=== PATIENT | female | born 1930 | race Native Hawaiian/Other Pacific Islander ===

== ENCOUNTER 2016-05-11 08:29 | Inpatient (IN) | payer OTHER | END 2016-06-11 08:00 | disposition still patient (30) | LOC: PAVA 08:29 | PROVIDERS: ADMIT Internal Medicine | DX: Z51.89 Encounter for other specified aftercare (principal) ==

== ENCOUNTER 2016-06-11 09:00 | Inpatient (IN) | payer OTHER | END 2016-07-12 08:34 | disposition still patient (30) | LOC: PAVA 09:00 | PROVIDERS: ADMIT Internal Medicine | DX: Z51.89 Encounter for other specified aftercare (principal) ==

== ENCOUNTER 2016-06-15 04:44 | Outpatient (CLI) | payer OTHER ==
[2016-06-15 06:33] LABS: PLATELET COUNT 271 K/uL (152-353)
[2016-06-15 06:43] LABS: POTASSIUM 4.3 mmol/L (3.6-5.2)
== END 2016-06-15 05:44 | disposition home or self-care (01) ==
LOC: LAB 04:44
PROVIDERS: Internal Medicine
DX: Z79.899 Other long term (current) drug therapy (principal); I10 Essential (primary) hypertension
CPT/HCPCS: 80053; 80061; 85027

== ENCOUNTER 2016-07-12 08:59 | Inpatient (IN) | payer OTHER | END 2016-08-09 08:16 | disposition still patient (30) | LOC: PAVA 08:59 | PROVIDERS: ADMIT Internal Medicine | DX: Z51.89 Encounter for other specified aftercare (principal) ==

== ENCOUNTER 2016-08-09 08:24 | Inpatient (IN) | payer OTHER | END 2016-09-09 08:01 | disposition still patient (30) | LOC: PAVA 08:24 | PROVIDERS: ADMIT Internal Medicine | DX: Z51.89 Encounter for other specified aftercare (principal) ==

== ENCOUNTER 2016-09-09 09:43 | Inpatient (IN) | payer OTHER | END 2016-10-09 08:29 | disposition still patient (30) | LOC: PAVA 09:43 | PROVIDERS: ADMIT Internal Medicine | DX: Z51.89 Encounter for other specified aftercare (principal) ==

== ENCOUNTER 2016-10-07 00:35 | Outpatient (CLI) | payer OTHER | END 2016-10-07 19:06 | disposition home or self-care (01) | LOC: LAB 00:35 | DX: Z16.24 Resistance to multiple antibiotics (principal) | CPT/HCPCS: 87081 ==

== ENCOUNTER 2016-10-09 08:40 | Inpatient (IN) | payer OTHER | END 2016-11-09 08:09 | disposition still patient (30) | LOC: PAVA 08:40 | PROVIDERS: ADMIT Internal Medicine | DX: Z51.89 Encounter for other specified aftercare (principal) ==

== ENCOUNTER 2016-11-09 08:18 | Inpatient (IN) | payer OTHER | END 2016-12-09 14:56 | disposition still patient (30) | LOC: PAVA 08:18 | PROVIDERS: ADMIT Internal Medicine | DX: Z51.89 Encounter for other specified aftercare (principal) ==

== ENCOUNTER 2016-12-09 15:04 | Inpatient (IN) | payer OTHER | END 2017-01-09 08:29 | disposition still patient (30) | LOC: PAVA 15:04 | PROVIDERS: ADMIT Internal Medicine | DX: Z51.89 Encounter for other specified aftercare (principal) ==

== ENCOUNTER 2016-12-14 05:20 | Outpatient (CLI) | payer OTHER ==
[2016-12-14 06:41] LABS: POTASSIUM 4.4 mmol/L (3.6-5.2)
[2016-12-14 09:48] LABS: PLATELET COUNT 291 K/uL (152-353)
== END 2016-12-14 17:51 | disposition home or self-care (01) ==
LOC: LAB 05:20
PROVIDERS: Internal Medicine
DX: Z79.899 Other long term (current) drug therapy (principal); Z51.81 Encounter for therapeutic drug level monitoring; I10 Essential (primary) hypertension
CPT/HCPCS: 80053; 85027

== ENCOUNTER 2017-01-09 08:47 | Inpatient (IN) | payer OTHER | END 2017-02-09 08:09 | disposition still patient (30) | LOC: PAVA 08:47 | PROVIDERS: ADMIT Internal Medicine | DX: Z51.89 Encounter for other specified aftercare (principal) ==

== ENCOUNTER 2017-02-09 08:19 | Inpatient (IN) | payer OTHER | END 2017-03-11 09:07 | disposition still patient (30) | LOC: PAVA 08:19 | PROVIDERS: ADMIT Internal Medicine | DX: Z51.89 Encounter for other specified aftercare (principal) ==

== ENCOUNTER 2017-03-11 09:16 | Inpatient (IN) | payer OTHER | END 2017-04-11 09:49 | disposition still patient (30) | LOC: PAVA 09:16 | PROVIDERS: ADMIT Internal Medicine ==

== ENCOUNTER 2017-04-11 10:31 | Inpatient (IN) | payer OTHER | END 2017-05-11 08:11 | disposition still patient (30) | LOC: PAVA 10:31 | PROVIDERS: ADMIT Internal Medicine ==

== ENCOUNTER 2017-05-11 08:44 | Inpatient (IN) | payer OTHER | END 2017-06-11 08:26 | disposition still patient (30) | LOC: PAVA 08:44 | PROVIDERS: ADMIT Internal Medicine ==

== ENCOUNTER 2017-06-11 08:45 | Inpatient (IN) | payer OTHER | END 2017-07-12 08:29 | disposition still patient (30) | LOC: PAVA 08:45 | PROVIDERS: ADMIT Internal Medicine ==

== ENCOUNTER 2017-06-13 06:24 | Outpatient (CLI) | payer OTHER ==
[2017-06-13 08:22] LABS: PLATELET COUNT 260 K/uL (152-353)
[2017-06-13 08:33] LABS: POTASSIUM 4.5 mmol/L (3.6-5.2)
== END 2017-06-13 21:33 | disposition home or self-care (01) ==
LOC: LAB 06:24
PROVIDERS: Internal Medicine
DX: E78.4 Other hyperlipidemia (principal)
CPT/HCPCS: 80053; 80061; 85027

== ENCOUNTER 2017-06-27 07:43 | Outpatient (CLI) | payer OTHER | END 2017-06-27 19:54 | disposition home or self-care (01) | LOC: LAB 07:43 | DX: R50.9 Fever, unspecified (principal) | CPT/HCPCS: 87804 ==

== ENCOUNTER 2017-06-28 16:21 | Outpatient (CLI) | payer OTHER | END 2017-06-28 20:17 | disposition home or self-care (01) | LOC: RESP 16:21 | DX: J09.X2 Influenza due to identified novel influenza A virus with other respiratory manifestations (principal); I50.9 Heart failure, unspecified | CPT/HCPCS: 93306 ==

== ENCOUNTER 2017-07-12 09:14 | Inpatient (IN) | payer OTHER | END 2017-08-09 08:06 | disposition still patient (30) | LOC: PAVA 09:14 | PROVIDERS: ADMIT Internal Medicine ==

== ENCOUNTER 2017-08-09 08:41 | Inpatient (IN) | payer OTHER | END 2017-09-09 08:00 | disposition still patient (30) | LOC: PAVA 08:41 | PROVIDERS: ADMIT Internal Medicine ==

== ENCOUNTER 2017-09-09 09:00 | Inpatient (IN) | payer OTHER | END 2017-10-09 08:10 | disposition still patient (30) | LOC: PAVA 09:00 | PROVIDERS: ADMIT Internal Medicine ==

== ENCOUNTER 2017-10-09 08:36 | Inpatient (IN) | payer OTHER | END 2017-11-09 08:17 | disposition still patient (30) | LOC: PAVA 08:36 | PROVIDERS: ADMIT Internal Medicine ==

== ENCOUNTER 2017-11-09 08:28 | Inpatient (IN) | payer OTHER | END 2017-12-09 14:14 | disposition still patient (30) | LOC: PAVA 08:28 | PROVIDERS: ADMIT Internal Medicine ==

== ENCOUNTER 2017-12-09 14:25 | Inpatient (IN) | payer OTHER | END 2018-01-09 08:00 | disposition still patient (30) | LOC: PAVA 14:25 | PROVIDERS: ADMIT Internal Medicine ==

== ENCOUNTER 2017-12-12 05:07 | Outpatient (CLI) | payer OTHER, MEDICARE ==
[2017-12-12 06:27] LABS: PLATELET COUNT 273 K/uL (152-353)
== END 2017-12-12 22:06 | disposition home or self-care (01) ==
LOC: LAB 05:07
PROVIDERS: Internal Medicine
DX: I10 Essential (primary) hypertension (principal)
CPT/HCPCS: 80053; 85027

== ENCOUNTER 2018-01-09 09:00 | Inpatient (IN) | payer OTHER | END 2018-02-09 09:55 | disposition still patient (30) | LOC: PAVA 09:00 | PROVIDERS: ADMIT Internal Medicine ==

== ENCOUNTER 2018-02-09 10:03 | Inpatient (IN) | payer OTHER | END 2018-03-11 08:38 | disposition still patient (30) | LOC: PAVA 10:03 | PROVIDERS: ADMIT Internal Medicine ==

== ENCOUNTER 2018-02-22 11:45 | Outpatient (CLI) | payer OTHER | END 2018-02-22 19:40 | disposition home or self-care (01) | LOC: LAB 11:45 | DX: R41.82 Altered mental status, unspecified (principal) | CPT/HCPCS: 81000 ==

== ENCOUNTER 2018-03-11 08:48 | Inpatient (IN) | payer OTHER ==
[2018-03-23] MEDS ORDERED: ALEN70TA19 PO (17:23)
[2018-03-23] MEDS ORDERED: CALCIUM PO (17:26)
[2018-03-23] MEDS ORDERED: CALCIUM 600+D31 TA2 PO (17:30)
[2018-03-23] MEDS ORDERED: DONE5TAB PO (17:31)
[2018-03-23] MEDS ORDERED: LEXAPRO20 MG PO (17:32)
[2018-03-23] MEDS ORDERED: ZESTRIL40 MG PO (17:33)
[2018-03-23] MEDS ORDERED: MULTIVITAMI1 PO (17:34)
[2018-03-23] MEDS ORDERED: NAMENDA XR28 MG PO (17:34)
[2018-03-23] MEDS ORDERED: PANTOPRAZOLE 40MG TA PO (17:35)
[2018-03-23] MEDS ORDERED: ZIPR20CA PO (17:38)
[2018-03-23] MEDS ORDERED: TYLENOL325 MG PO (17:39)
[2018-04-04] MEDS ORDERED: MEMA10TA2 PO (11:53)
[2018-04-04] MEDS ORDERED: RISP0.25 PO (11:53)
[2018-04-04] MEDS ORDERED: ZIPR20IN IM (11:53)
== END 2018-04-05 16:00 | disposition short-term general hospital (02) ==
LOC: PAVA 08:48
PROVIDERS: ADMIT Internal Medicine

== ENCOUNTER 2020-12-20 13:20 | Inpatient (IN) | payer OTHER | END 2021-01-09 08:00 | disposition still patient (30) | LOC: PAVA 13:20 | PROVIDERS: ADMIT Internal Medicine; ATTEND Internal Medicine ==

== ENCOUNTER → 2020-12-20 | Outpatient (CLI) | payer OTHER ==
[~2020-12-20] MED LIST: ALEN70TA19 PO; CALCIUM 600+D31 TA2 PO; CALCIUM PO; DONE5TAB PO; LEXAPRO20 MG PO; MEMA10TA2 PO; MULTIVITAMI1 PO; NAMENDA XR28 MG PO; PANTOPRAZOLE 40MG TA PO; RISP0.25 PO; TYLENOL325 MG PO; ZESTRIL40 MG PO; ZIPR20CA PO; ZIPR20IN IM
== END ==
LOC: LAB 19:09
PROVIDERS: ATTEND Internal Medicine
DX: Z00.00 Encounter for general adult medical examination without abnormal findings (principal)
CPT/HCPCS: 87081

== ENCOUNTER 2020-12-22 06:53 | Outpatient (CLI) | payer OTHER ==
[2020-12-22 07:39] LABS: PLATELET COUNT 256 K/uL (152-353)
== END 2020-12-22 21:21 | disposition home or self-care (01) ==
LOC: LAB 06:53
PROVIDERS: ATTEND Internal Medicine
DX: E78.49 Other hyperlipidemia (principal); I50.812 Chronic right heart failure; G30.9 Alzheimer's disease, unspecified; D64.9 Anemia, unspecified
CPT/HCPCS: 82306; 82728; 83540; 85027

== ENCOUNTER 2020-12-23 08:21 | Outpatient (CLI) | payer OTHER | END 2020-12-23 19:07 | disposition home or self-care (01) | LOC: LAB 08:21 | PROVIDERS: ATTEND Internal Medicine | DX: D64.89 Other specified anemias (principal) | CPT/HCPCS: 82270 ==

== ENCOUNTER 2020-12-26 18:28 | Emergency (ER) | payer OTHER ==
[~2020-12-26] VITALS: Ht 152.4 cm; Wt 54.9 kg
[2020-12-26 18:31] VITALS: TEMP 97.6
[2020-12-26 19:30] VITALS: BP 110/58
== END 2020-12-26 20:16 ==
LOC: ED 18:28
PROC: 0HQ1XZZ Repair Face Skin, External Approach (ICD-10-PCS; principal; 2020-12-26)
DX: S01.81XA Laceration without foreign body of other part of head, initial encounter (principal); W18.39XA Other fall on same level, initial encounter; Y92.128 Other place in nursing home as the place of occurrence of the external cause
CPT/HCPCS: 96372; 99284; J0690

== ENCOUNTER 2021-01-09 09:00 | Inpatient (IN) | payer OTHER | END 2021-02-09 09:08 | disposition still patient (30) | LOC: PAVA 09:00 | PROVIDERS: ADMIT Internal Medicine; ATTEND Internal Medicine ==

== ENCOUNTER 2021-01-13 08:38 | Outpatient (CLI) | payer OTHER | END 2021-01-13 20:21 | disposition home or self-care (01) | LOC: LAB 08:38 | PROVIDERS: ATTEND Internal Medicine | DX: G30.9 Alzheimer's disease, unspecified (principal); F02.81 Dementia in other diseases classified elsewhere, unspecified severity, with behavioral disturbance; R13.11 Dysphagia, oral phase; D64.89 Other specified anemias; K59.00 Constipation, unspecified | CPT/HCPCS: 82272 ==

== ENCOUNTER 2021-01-14 09:31 | Outpatient (CLI) | payer OTHER | END 2021-01-14 19:57 | disposition home or self-care (01) | LOC: LAB 09:31 | PROVIDERS: ATTEND Internal Medicine | DX: D64.89 Other specified anemias (principal); K59.00 Constipation, unspecified | CPT/HCPCS: 82272 ==

== ENCOUNTER 2021-01-17 10:18 | Outpatient (CLI) | payer OTHER | END 2021-01-17 21:44 | disposition home or self-care (01) | LOC: LAB 10:18 | PROVIDERS: ATTEND Internal Medicine | DX: R19.5 Other fecal abnormalities (principal); D64.89 Other specified anemias | CPT/HCPCS: 82272 ==